=== PATIENT | female | born 1995 | race Caucasian/White ===

== ENCOUNTER 2022-03-26 11:59 | Emergency (ER) | payer BC ==
[~2022-03-26] VITALS: Ht 157.5 cm; Wt 106.8 kg
[2022-03-26 12:35] VITALS: BP 113/81
[2022-03-26] MEDS ORDERED: METH4TAB3 PO (14:53)
== END 2022-03-26 14:59 | disposition home or self-care (01) ==
LOC: ER 12:01
DX: H92.01 Otalgia, right ear (principal); M26.621 Arthralgia of right temporomandibular joint; Z79.899 Other long term (current) drug therapy
CPT/HCPCS: 99283

== ENCOUNTER 2024-02-25 12:01 | Day surgery (SDC) | payer BC ==
[2024-02-18 10:48] LABS: BASOPHILS % (AUTO) 0.3 % (0-1); EOSINOPHILS # (AUTO) 0.1 X10'3 (0-0.9); EOSINOPHILS % (AUTO) 1.6 % (0-6); LYMPHOCYTES # (AUTO) 1.5 X10'3 (1.1-4.8); LYMPHOCYTES % (AUTO) 30.7 % (21-51); MEAN CORPUSCULAR HEMOGLOBIN 28.2 PG (27.0-31.0); MEAN CORPUSCULAR HGB CONC 33.6 g/dL (33.0-36.5); MEAN PLATELET VOLUME 8.1 FL (7.4-10.4); MONOCYTES # (AUTO) 0.5 X10'3 (0-0.9); MONOCYTES % (AUTO) 9.6 % (2-12); NEUTROPHILS # (AUTO) 2.9 X10'3 (1.8-7.7); NEUTROPHILS % (AUTO) 57.8 % (42-75); PRE OP HEMATOCRIT 38.9 % (35.0-45.0); PRE OP HEMOGLOBIN 13.1 g/dL (12.0-16.0); PRE OP PLATELET COUNT 236 X10'3 (140-440); RED BLOOD COUNT 4.63 X10'6 (4.20-5.60); RED CELL DISTRIBUTION WIDTH 14.7 % (11.5-14.5)
[2024-02-18 11:12] LABS: HCG SERUM QL NEGATIVE
[2024-02-18 11:17] LABS: ALBUMIN 3.7 G/DL (3.4-5.0); ALBUMIN/GLOBULIN RATIO 0.9 (1.1-1.5); ALKALINE PHOSPHATASE 74 IU/L (46-116); BLOOD UREA NITROGEN 16 MG/DL (7-18); BUN/CREATININE RATIO 19.5 (10.0-20.0); CALCIUM 8.7 MG/DL (8.5-10.1); CHLORIDE 107 MMOL/L (99-107); CREATININE 0.82 MG/DL (0.40-0.90); PRE OP ALT 42 U/L (30-65); PRE OP ANION GAP 10 (8-16); PRE OP AST 38 U/L (10-37); PRE OP BILIRUB, TOTAL 0.6 MG/DL (0.0-1.0); PRE OP GLUCOSE 91 MG/DL (70-104); PRE OP POTASSIUM 4.1 MMOL/L (3.4-5.1); PRE OP SODIUM 143 MMOL/L (135-145); TOTAL CARBON DIOXIDE 26.2 MMOL/L (24-32); TOTAL PROTEIN 7.9 G/DL (6.4-8.2); eGFR 83 ML/MIN
[~2024-02-25] VITALS: Ht 157.5 cm; Wt 102.6 kg
[2024-02-25] VITALS (13 sets, daily range): BP systolic 110–126; BP diastolic 77–82; PULSE 79–91; RESP 14–23; TEMP 98.4; O2SAT 95–100
[2024-02-25] MEDS: ceFOXitin 2GM-NS 100mL ADDvant 100 ML IV ONE (05:30)
[~2024-02-25 12:01] MED LIST: B12/1TAB5 PO; CHOL500061 PO; MAGN250T11 PO; METH4TAB3 PO
[2024-02-25] MEDS: ringers solution, lacted 1,000 ML IV SCH ×2 (13:08→16:12)
[2024-02-25] MEDS: famotidine 20mg tablet PO ONE (13:08)
[2024-02-25] MEDS ORDERED: sevoflurane 250ml liquid IH ONE (14:51)
[2024-02-25] MEDS ORDERED: labetalol 20mg/4ml (5mg/ml) syringe IV PRN (14:55)
[2024-02-25] MEDS ORDERED: ondansetron/PF 4mg/2ml inj IV PRN (14:55)
[2024-02-25] MEDS ORDERED: morphine 4 MG/ML inj SYRINge IV PRN (14:55)
[2024-02-25] MEDS ORDERED: proCHLORperazine 10 MG/2 ml inj IV PRN (14:55)
[2024-02-25] MEDS ORDERED: hydrALAZINE 20mg/ml inj. IV PRN (14:55)
[2024-02-25] MEDS ORDERED: meperidine/PF 25mg/ml syringe IV PRN (14:55)
[2024-02-25] MEDS ORDERED: morphine 2 MG/ML inj. syringe IV PRN (14:55)
[2024-02-25] MEDS ORDERED: fentaNYL/PF 50MCG/1 ML 2ML syringe ONE (14:57)
[2024-02-25] MEDS ORDERED: midazolam 1 mg/ML 2ml injection ONE (15:06)
[2024-02-25] MEDS ORDERED: ondansetron/PF 4mg/2ml inj ONE (15:06)
[2024-02-25] MEDS ORDERED: propofol inj 20 ML IV ONE (15:06)
[2024-02-25] MEDS ORDERED: LIDOcaine 1%/PF 5ML 10 MG/ML VIAL ONE (15:07)
[2024-02-25] MEDS ORDERED: dexamethasone sod phosphate 4mg/ml inj. ONE (15:07)
[2024-02-25] MEDS ORDERED: BUPIVAcaine/PF 2.5mg/ml (0.25%) 10ml vial ONE (15:19)
[2024-02-25] MEDS: BUPIVAcaine/PF 2.5mg/ml (0.25%) 10ml vial IJ ONE (15:35)
[2024-02-25] MEDS: acetaminophen 1,000mg/100ml IV 100 ML IV ONE (15:56)
[2024-02-25] MEDS: meperidine/PF 25mg/ml syringe IV PRN (16:11)
== END 2024-02-25 17:18 | disposition home or self-care (01) ==
LOC: PAS 12:01
PROVIDERS: ATTEND Specialist
DX: N92.0 Excessive and frequent menstruation with regular cycle (principal); E66.9 Obesity, unspecified; Z79.899 Other long term (current) drug therapy; Z90.49 Acquired absence of other specified parts of digestive tract; Z90.89 Acquired absence of other organs; Z98.890 Other specified postprocedural states; Z68.41 Body mass index [BMI] 40.0-44.9, adult; Z88.8 Allergy status to other drugs, medicaments and biological substances
CPT/HCPCS: 36415; 58563; 80053; 82948; 84703; 85025; J0131; J0694; J1100; J2175; J2250; J2405; J2704; J3010; J3490; J7120; Z7506; Z7512; A4355; A4618; A4649; A6258

== ENCOUNTER 2024-09-11 15:15 | Emergency (ER) | payer BC ==
[~2024-09-11] VITALS: Ht 157.5 cm; Wt 94.8 kg
[2024-09-11 15:36] LABS: BILIRUBIN,URINE NEGATIVE (Neg); CLARITY,URINE CLEAR (Clear); COLOR,URINE YELLOW (Yellow); GLUCOSE, URINE NEGATIVE (Neg); KETONES,URINE NEGATIVE (Neg); LEUKOCYTE ESTERASE ,URINE NEGATIVE (Neg); NITRITES, URINE NEGATIVE (Neg); OCCULT BLOOD,URINE NEGATIVE (Neg); PH,URINE 7.5 (4.8-8.0); PROTEIN,URINE NEGATIVE (Neg); URINE HCG NEGATIVE (NEG)
[2024-09-11 15:40] LABS: UA COLLECTION TYPE CLN CATCH MIDSTREAM
[2024-09-11 15:45] LABS: HEMATOCRIT 42.3 % (35.0-45.0); HEMOGLOBIN 14.3 g/dl (12.0-16.0); MEAN CORPUSCULAR HGB CONC 33.8 g/dL (33.0-36.5); MEAN CORPUSCULAR VOLUME 85.9 FL (78-98); RED BLOOD COUNT 4.92 X10'6 (4.20-5.60); WHITE BLOOD COUNT 6.4 X10'3 (4.5-11.0)
[2024-09-11 15:46] LABS: BASOPHILS % (AUTO) 0.4 % (0-1); EOSINOPHILS # (AUTO) 0.1 X10'3 (0-0.9); EOSINOPHILS % (AUTO) 1.3 % (0-6); LYMPHOCYTES # (AUTO) 2.3 X10'3 (1.1-4.8); LYMPHOCYTES % (AUTO) 35.5 % (21-51); MEAN PLATELET VOLUME 8.3 FL (7.4-10.4); MONOCYTES # (AUTO) 0.6 X10'3 (0-0.9); MONOCYTES % (AUTO) 9.4 % (2-12); NEUTROPHILS # (AUTO) 3.4 X10'3 (1.8-7.7); NEUTROPHILS % (AUTO) 53.4 % (42-75); PLATELET COUNT 255 X10'3 (140-440); RED CELL DISTRIBUTION WIDTH 13.5 % (11.5-14.5)
[2024-09-11 15:58] LABS: ALANINE AMINOTRANSFERASE 55 U/L (12-78); ALBUMIN 3.9 G/DL (3.4-5.0); ALKALINE PHOSPHATASE 78 IU/L (46-116); ANION GAP 7 (8-16); ASPARTATE AMINO TRANSFERASE 40 U/L (10-37); BILIRUBIN,TOTAL 0.5 MG/DL (0.1-1.0); BLOOD UREA NITROGEN 10 MG/DL (7-18); BUN/CREATININE RATIO 12.7 (10.0-20.0); CALCIUM 8.5 MG/DL (8.5-10.1); CHLORIDE 104 MMOL/L (99-107); CREATININE 0.79 MG/DL (0.40-0.90); GLUCOSE 97 MG/DL (70-104); LIPASE 134 U/L (16-77); POTASSIUM 3.7 MMOL/L (3.5-5.1); SODIUM 140 MMOL/L (135-145); TOTAL CARBON DIOXIDE 29.2 MMOL/L (24-32); TOTAL PROTEIN 7.9 G/DL (6.4-8.2); eCRCL 83 ML/MIN; eGFR 86 ML/MIN
[2024-09-11 17:56] VITALS: TEMP 98.5
[2024-09-11] MEDS ORDERED: iohexol 300mg/ml 100ml inj. ONE (18:28)
[2024-09-11] MEDS ORDERED: SUCR1TAB PO (19:22)
[2024-09-11 19:27] VITALS: BP 133/78; PULSE 79; RESP 15; O2SAT 98
== END 2024-09-11 19:35 | disposition home or self-care (01) ==
LOC: ER 15:16
DX: K29.00 Acute gastritis without bleeding (principal); Z90.49 Acquired absence of other specified parts of digestive tract; Z91.018 Allergy to other foods; Z79.51 Long term (current) use of inhaled steroids; Z79.899 Other long term (current) drug therapy
CPT/HCPCS: 36415; 74177; 80053; 81003; 81025; 83690; 85025; 99285; Q9967

== ENCOUNTER 2024-09-26 06:39 | Emergency (ER) | payer BC ==
[~2024-09-26] VITALS: Ht 157.5 cm; Wt 95.5 kg
[~2024-09-26 06:39] MED LIST changes: +SUCR1TAB PO
[2024-09-26 06:41] VITALS: TEMP 98.7
[2024-09-26 07:23] LABS: BILIRUBIN,URINE NEGATIVE (Neg); CLARITY,URINE SLIGHTLY CLOUDY (Clear); COLOR,URINE YELLOW (Yellow); GLUCOSE, URINE NEGATIVE (Neg); KETONES,URINE NEGATIVE (Neg); LEUKOCYTE ESTERASE ,URINE NEGATIVE (Neg); NITRITES, URINE NEGATIVE (Neg); OCCULT BLOOD,URINE NEGATIVE (Neg); PROTEIN,URINE NEGATIVE (Neg)
[2024-09-26 07:25] LABS: BASOPHILS % (AUTO) 0.3 % (0-1); EOSINOPHILS # (AUTO) 0.1 X10'3 (0-0.9); EOSINOPHILS % (AUTO) 1.9 % (0-6); HEMATOCRIT 41.4 % (35.0-45.0); HEMOGLOBIN 14.3 g/dl (12.0-16.0); LYMPHOCYTES # (AUTO) 1.5 X10'3 (1.1-4.8); LYMPHOCYTES % (AUTO) 33.3 % (21-51); MEAN CORPUSCULAR HEMOGLOBIN 29.8 PG (27.0-31.0); MEAN CORPUSCULAR HGB CONC 34.5 g/dL (33.0-36.5); MEAN CORPUSCULAR VOLUME 86.6 FL (78-98); MEAN PLATELET VOLUME 8.3 FL (7.4-10.4); MONOCYTES # (AUTO) 0.5 X10'3 (0-0.9); MONOCYTES % (AUTO) 11.6 % (2-12); NEUTROPHILS # (AUTO) 2.4 X10'3 (1.8-7.7); NEUTROPHILS % (AUTO) 52.9 % (42-75); PLATELET COUNT 226 X10'3 (140-440); RED BLOOD COUNT 4.78 X10'6 (4.20-5.60); RED CELL DISTRIBUTION WIDTH 13.6 % (11.5-14.5); WHITE BLOOD COUNT 4.5 X10'3 (4.5-11.0)
[2024-09-26 07:27] LABS: URINE HCG NEGATIVE (NEG)
[2024-09-26 07:31] LABS: UA COLLECTION TYPE CLN CATCH MIDSTREAM
[2024-09-26 07:32] LABS: MUCUS STRANDS MANY /LPF (Neg); SQUAMOUS EPITHELIAL CELL,UR MANY /LPF (FEW); TRANSITIONAL EPI CELLS,URINE FEW /HPF; WBC,URINE 0-4 /HPF (0-4)
[2024-09-26 07:33] LABS: BACTERIA,URINE FEW /HPF (Neg); RBC,URINE 0-2 /HPF (0-2)
[2024-09-26 07:35] LABS: ALANINE AMINOTRANSFERASE 60 U/L (12-78); ALBUMIN/GLOBULIN RATIO 1.1 (1.1-1.5); ALKALINE PHOSPHATASE 64 IU/L (46-116); ANION GAP 7 (8-16); ASPARTATE AMINO TRANSFERASE 54 U/L (10-37); BILIRUBIN,TOTAL 0.6 MG/DL (0.1-1.0); BLOOD UREA NITROGEN 12 MG/DL (7-18); BUN/CREATININE RATIO 14.8 (10.0-20.0); CALCIUM 8.7 MG/DL (8.5-10.1); CHLORIDE 106 MMOL/L (99-107); CREATININE 0.81 MG/DL (0.40-0.90); GLUCOSE 90 MG/DL (70-104); LIPASE 130 U/L (16-77); POTASSIUM 3.6 MMOL/L (3.5-5.1); SODIUM 140 MMOL/L (135-145); TOTAL CARBON DIOXIDE 27.2 MMOL/L (24-32); TOTAL PROTEIN 7.7 G/DL (6.4-8.2); eCRCL 81 ML/MIN; eGFR 84 ML/MIN
[2024-09-26] MEDS: normal saline 1000ML IV soln IVB ONE (10:39)
[2024-09-26] MEDS: metoclopramide 5 mg/ml inj IV ONE (10:43)
[2024-09-26] MEDS: morphine 4 MG/ML inj SYRINge IV ONE (10:44)
[2024-09-26] MEDS ORDERED: FAMO-49 PO (12:25)
[2024-09-26] MEDS ORDERED: METO10TA3 PO (12:25)
[2024-09-26] MEDS ORDERED: TRAM50TA2 PO (12:25)
[2024-09-26 12:47] VITALS: BP 116/80; PULSE 85; RESP 17; O2SAT 98
== END 2024-09-26 12:35 | disposition home or self-care (01) ==
LOC: ER 06:40
DX: R10.9 Unspecified abdominal pain (principal); R11.0 Nausea; Z91.013 Allergy to seafood; Z79.899 Other long term (current) drug therapy
CPT/HCPCS: 36415; 80053; 81001; 81025; 83690; 85025; 96361; 96374; 96375; 99284; J2270; J2765; J7030

== ENCOUNTER 2024-10-06 08:11 | Day surgery (SDC) | payer BC ==
[~2024-10-06] VITALS: Ht 157.5 cm; Wt 93.2 kg
[~2024-10-06 08:11] MED LIST changes: -B12/1TAB5 PO; +FAMO20TA8 PO; -MAGN250T11 PO; -METH4TAB3 PO; -SUCR1TAB PO; +TRAM50TA2 PO
[2024-10-06 08:26] VITALS: BP 109/62; PULSE 93; RESP 16; TEMP 98.2
[2024-10-06] MEDS ORDERED: MIDAZolam 1 MG/ML 5ML VIAL ONE (08:35)
[2024-10-06] MEDS ORDERED: fentaNYL/PF 50MCG/1 ML 2ML syringe ONE (08:35)
[2024-10-06] MEDS ORDERED: propofol inj 20 ML IV ONE (08:36)
[2024-10-06] MEDS ORDERED: LIDOcaine 2% (20mg/ml) 5ml vial ONE (08:36)
[2024-10-06 11:10] VITALS: BP 107/65; PULSE 81; RESP 18; O2SAT 93
[2024-10-06 11:20] VITALS: BP 104/69; PULSE 93; RESP 16; O2SAT 94
[2024-10-06 11:30] VITALS: BP 110/73; PULSE 80; RESP 16; O2SAT 95
[2024-10-06 11:40] VITALS: BP 112/69; PULSE 80; RESP 26; O2SAT 98
== END 2024-10-06 12:03 | disposition home or self-care (01) ==
LOC: GI LAB 08:11
PROVIDERS: ATTEND Internal Medicine Gastroenterology
DX: R10.30 Lower abdominal pain, unspecified (principal); R11.2 Nausea with vomiting, unspecified; K30 Functional dyspepsia; K29.70 Gastritis, unspecified, without bleeding; E66.9 Obesity, unspecified; Z68.37 Body mass index [BMI] 37.0-37.9, adult
CPT/HCPCS: 43239; 45380; J2003; J2250; J2704; J3010; J7030; Z7512; A4620

== ENCOUNTER 2024-11-12 20:06 | Emergency (ER) | payer BC ==
[~2024-11-12] VITALS: Ht 157.5 cm; Wt 91.7 kg
[2024-11-12 21:22] VITALS: BP 108/77; PULSE 88; RESP 18; O2SAT 99
== END 2024-11-12 22:56 | disposition home or self-care (01) ==
LOC: ER 20:06
DX: S30.0XXA Contusion of lower back and pelvis, initial encounter (principal); Z91.018 Allergy to other foods; Z79.899 Other long term (current) drug therapy; W18.39XA Other fall on same level, initial encounter; Y93.89 Activity, other specified; Y92.89 Other specified places as the place of occurrence of the external cause; Y99.8 Other external cause status
CPT/HCPCS: 72220; 99284

== ENCOUNTER 2025-01-24 07:03 | Emergency (ER) | payer BC ==
[~2025-01-24] VITALS: Ht 157.5 cm; Wt 84.2 kg
[2025-01-24 08:46] LABS: STREP A SCREEN NEGATIVE (Neg)
[2025-01-24] MEDS ORDERED: DEC4T PO (09:21)
[2025-01-24] MEDS: dexamethasone 4mg tablet PO ONE (09:47)
[2025-01-24 09:51] VITALS: BP 111/79; PULSE 69; RESP 18; O2SAT 98
[2025-01-24 10:12] VITALS: TEMP 97.1
== END 2025-01-24 10:13 | disposition home or self-care (01) ==
LOC: ER 07:04
DX: J02.9 Acute pharyngitis, unspecified (principal); Z91.018 Allergy to other foods; Z79.899 Other long term (current) drug therapy
CPT/HCPCS: 87081; 87880; 99283

== ENCOUNTER 2025-02-08 23:49 | Emergency (ER) | payer BC ==
[~2025-02-08] VITALS: Ht 157.5 cm; Wt 81.3 kg
[2025-02-09 00:24] LABS: BASOPHILS % (AUTO) 0.3 % (0-1); EOSINOPHILS # (AUTO) 0.1 X10'3 (0-0.9); HEMATOCRIT 41.9 % (35.0-45.0); HEMOGLOBIN 14.5 g/dl (12.0-16.0); LYMPHOCYTES # (AUTO) 2.3 X10'3 (1.1-4.8); LYMPHOCYTES % (AUTO) 30.1 % (21-51); MEAN CORPUSCULAR HEMOGLOBIN 29.9 PG (27.0-31.0); MEAN CORPUSCULAR HGB CONC 34.7 g/dL (33.0-36.5); MEAN CORPUSCULAR VOLUME 86.1 FL (78-98); MEAN PLATELET VOLUME 7.9 FL (7.4-10.4); MONOCYTES # (AUTO) 0.9 X10'3 (0-0.9); MONOCYTES % (AUTO) 11.7 % (2-12); NEUTROPHILS # (AUTO) 4.4 X10'3 (1.8-7.7); NEUTROPHILS % (AUTO) 56.9 % (42-75); PLATELET COUNT 274 X10'3 (140-440); RED BLOOD COUNT 4.86 X10'6 (4.20-5.60); RED CELL DISTRIBUTION WIDTH 12.3 % (11.5-14.5); WHITE BLOOD COUNT 7.8 X10'3 (4.5-11.0)
[2025-02-09 00:24] LABS: URINE HCG NEGATIVE (NEG)
[2025-02-09] MEDS: normal saline 1000ml 1,000 ML IV ONE (00:34)
[2025-02-09] MEDS: ondansetron/PF 4mg/2ml inj IV ONE (00:34)
[2025-02-09 00:36] LABS: ALANINE AMINOTRANSFERASE 70 U/L (12-78); ALBUMIN 3.9 G/DL (3.4-5.0); ALBUMIN/GLOBULIN RATIO 0.9 (1.1-1.5); ALKALINE PHOSPHATASE 88 IU/L (46-116); ASPARTATE AMINO TRANSFERASE 52 U/L (10-37); BILIRUBIN,TOTAL 0.8 MG/DL (0.1-1.0); BLOOD UREA NITROGEN 8 MG/DL (7-18); BUN/CREATININE RATIO 9.9 (10.0-20.0); CALCIUM 8.9 MG/DL (8.5-10.1); CREATININE 0.81 MG/DL (0.40-0.90); GLUCOSE 90 MG/DL (70-104); LIPASE 98 U/L (16-77); SODIUM 141 MMOL/L (135-145); TOTAL CARBON DIOXIDE 29.4 MMOL/L (24-32); TOTAL PROTEIN 8.1 G/DL (6.4-8.2); eCRCL 81 ML/MIN; eGFR 84 ML/MIN
[2025-02-09 00:37] LABS: ANION GAP 9 (8-16); CHLORIDE 103 MMOL/L (99-107)
[2025-02-09] MEDS ORDERED: POTA-207 PO (00:52)
[2025-02-09] MEDS ORDERED: LOPE2CAP PO (00:52)
[2025-02-09] MEDS: loperamide 2mg capsule PO ONE (01:00)
[2025-02-09] MEDS: potassium Cl 20 mEq SR tablet PO STA (01:01)
[2025-02-09 01:02] VITALS: O2SAT 99
[2025-02-09] MEDS ORDERED: ONDA-245 PO (01:16)
[2025-02-09 01:17] VITALS: BP 106/68; PULSE 84; RESP 16; TEMP 98
== END 2025-02-09 01:19 | disposition home or self-care (01) ==
LOC: ER 23:50
DX: K52.9 Noninfective gastroenteritis and colitis, unspecified (principal); E87.6 Hypokalemia; Z79.899 Other long term (current) drug therapy; Z91.018 Allergy to other foods
CPT/HCPCS: 36415; 80053; 81025; 83690; 84145; 85025; 96361; 96374; 99283; J2405; J7030

== ENCOUNTER 2025-03-19 09:47 | Emergency (ER) | payer BC ==
[~2025-03-19] VITALS: Ht 157.5 cm; Wt 79.2 kg
[~2025-03-19 09:47] MED LIST changes: +LOPE2CAP PO; +ONDA-245 PO
[2025-03-19 09:52] VITALS: BP 114/71; PULSE 92; RESP 16; TEMP 98.1; O2SAT 96
[2025-03-19 10:13] LABS: CLARITY,URINE CLEAR (Clear); COLOR,URINE ORANGE (Yellow)
[2025-03-19 10:15] LABS: URINE HCG NEGATIVE (NEG)
[2025-03-19 10:17] LABS: UA COLLECTION TYPE CLN CATCH MIDSTREAM
[2025-03-19 10:19] LABS: BACTERIA,URINE 2+ /HPF (Neg); MUCUS STRANDS NONE SEEN /LPF (Neg); SQUAMOUS EPITHELIAL CELL,UR FEW /LPF (FEW); WBC,URINE 20-30 /HPF (0-4)
[2025-03-19] MEDS ORDERED: CEPH-585 PO (11:05)
--- NOTE | 2025-03-19 11:07 | Physician Documentation ---
History of Present Illness ~ Chief Complaint: Urinary Symptoms Stated Complaint: ABD PAIN/UTI Time Seen by MD: 10:21 Primary Medical Doctor: anthony gomez np HPI Female presents with a complaint of right-sided pelvic pain and urinary symptoms including frequency and burning urination. Denies any discharge her Day of Onset: March 19, 2025 Medication Reconciliation Allergies: Coded Allergies: shrimp (Verified Allergy, Unknown, HIVES, 02/08/25) Scheduled Cephalexin*Monohydrate* (Keflex*), 1 CAP PO QID Cholecalciferol (Vitamin D3) (Vitamin D3), 1 TAB PO DAILY, (Reported) Famotidine (Famotidine), 1 TAB PO Q12H, (Reported) Loperamide Hcl (Loperamide), 2 CAP PO Q6H Ondansetron 8mg ODT (Ondansetron Odt), 1 TAB PO Q6H Scheduled PRN Tramadol HCl (Tramadol HCl), 1 TAB PO Q6H PRN PRN for pain, (Reported) Discontinued Medications Potassium Chloride* (K-Dur*), 1 TAB PO Q12H Discontinued Reason: Auto Discontinued Review of Systems All Other Systems at this time: Reviewed and Negative ROS As stated above in the HPI, otherwise all systems are reviewed and negative. Physical Exam Vital Signs: Temperature: 98.1, Source: Oral, Heart Rate: 92, Respiratory Rate: 16, BP: 114/71, Pulse Oximetry: 96, Weight: 79.200 Oxygen Flow Rate: 0 Physical Exam General: Alert, no apparent distress. Neurologic: Oriented x4. Psychiatric: Normal mood and affect. Skin: Normal color, warm and dry. No edema, no ecchymosis. Progress Results/Orders Results/Orders Vital Signs 03/19/25 09:52 Temp 98.1 Pulse 92 Resp 16 B/P (MAP) 114/71 Pulse Ox 96 O2 Flow Rate 0 Laboratory Tests Test 03/19/25 09:56 Urine Specimen Description Cln catch midstream Urine Color M[place]re[place] Urine Clarity Clear Urine pH Urine Specific [place] Urine Protein Urine Glucose (UA) Urine Ketones Urine Occult Blood Urine Nitrite Urine Bilirubin Urine Urobilinogen Urine Leukocyte Esterase Urine RBC 10-20 Urine WBC 20-30 H Urine Squamous Epithelial Cells Few Urine Bacteria 2+ Urine Mucus None seen Urine Culture Indicated Indicated Volume Urine Centrifuged 1 ml Urine HCG, Qualitative Negative Urine Comment Low volume Microbiology Date/Time Source Procedure Growth Status 03/19/25 10:19 Urine Clean Catch Midstream Urine Culture - Preliminary Culture received. Resulted Medical Decision Making Findings Done patient's urinalysis so we will be treating her for urinary tract infection be a broad-spectrum antibiotics. sending home with Keflex as it is usually well tolerated. Urinary Diff Dx:Considerations: Include: AAA, , Aortic dissection, Appendicitis, Bowel obstruction, Cholelithiasis, Choleangitis, DJD, Ectopic , Hepatitis, HNP, Impaction, Intrauterine , Musculoskeletal pain, Ovarian torsion, Pancreatitis, PID, Post-Op complication, Pyelonephritis, Renal failure, Strain, Urinary Obstruction, Urolithiasis, Urinary retention, UTI, Vaginitis, Other Departure Disposition: 01 HOME / SELF CARE / HOMELESS Impression: Primary Impression: Acute urinary tract infection Condition: Stable Discharge Instructions: Urinary Tract Infection, Adult Referrals: NO PRIMARY CARE PROVIDER (PCP) Prescriptions Cephalexin*Monohydrate* (Keflex*) 500 Mg Capsule 1 CAP PO QID, #40 CAP Prov: GERARD MORALES NP 03/19/25 Signature Scribe Signature: min Attestation: The note accurately reflects work and decisions made by me.Gerard Morales - RAYMOND 03/19/25 11:06 GERARD MORALES NP March 19, 2025 11:07
== END 2025-03-19 11:14 | disposition home or self-care (01) ==
LOC: ER 09:47
DX: N39.0 Urinary tract infection, site not specified (principal); Z79.899 Other long term (current) drug therapy
CPT/HCPCS: 81001; 81025; 87077; 87088; 87186; 99283